=== PATIENT | female | born 1995 | race Two or more races ===

== ENCOUNTER 2024-04-27 08:52 | Observation (INO) | payer BC ==
[2024-04-27 10:20] LABS: Alanine Aminotransferase 10 U/L (7-40); Albumin 3.7 g/dL (3.2-4.8); Alkaline Phosphatase 87 U/L (46-116); Anion Gap 8 (5-15); BUN/Creatinine Ratio 9.2 (10.0-20.0); Calcium 9.7 mg/dL (8.7-10.4); Carbon Dioxide 23 mmol/L (20-31); Chloride 107 mmol/L (98-107); Potassium 3.6 mmol/L (3.5-5.1); Sodium 138 mmol/L (136-145)
[2024-04-27 10:21] LABS: Bilirubin, Total 0.3 mg/dL (0.2-1.0); Total Protein 6.6 g/dL (5.7-8.2)
[2024-04-27 10:31] LABS: Aspartate Aminotransferase 10 U/L (13-40); Blood Urea Nitrogen 7 mg/dL (9-23); Glucose 115 mg/dL (74-106)
[2024-04-27 10:48] LABS: Protein, Urine 13.6 mg/dL (1-14)
[2024-04-27 10:51] LABS: Creatinine, Urine 84.19 mg/dL (30.0-125.0); Urine Protein/Creatinine Ratio 0.16
[2024-04-27 10:53] LABS: Urine Bacteria FEW /hpf (None Seen); Urine Blood Negative /uL (Negative); Urine Clarity Clear (Clear); Urine Color Light-Yellow (Yellow); Urine Protein, UAD Negative (Negative); Urine Urobilinogen Normal (Negative); Urine WBC 1 /hpf (0 - 5); Urine pH 6.5 (5.0-9.0)
[2024-04-27 11:20] LABS: Basophils # (auto) 0 10 ^3/uL (0-0.2); Basophils % (auto) 0.2 % (0.0-2.0); Eosinophils # (auto) 0.1 10 ^3/uL (0-0.8); Eosinophils % (auto) 0.5 % (0.0-7.0); Hematocrit 37.3 % (36.0-46.0); Lymphocytes # (auto) 1.2 10 ^3/uL (0.4-5.4); Lymphocytes % (auto) 11.7 % (10.0-50.0); Mean Corpuscular Hemoglobin 28.5 pg (28.0-32.0); Mean Corpuscular Hgb Conc. 34.8 g/dL (32.0-36.0); Monocytes # (auto) 0.4 10 ^3/uL (0-1.3); Monocytes % (auto) 4.3 % (0.0-12.0); Neutrophils # (auto) 8.3 10 ^3/uL (1.6-8.6); Neutrophils % (auto) 83.3 % (37.0-80.0); Nucleated Red Blood Cells % 0.1 %; Platelet Count (auto) 202 10^3/uL (140-450); Red Blood Cells 4.55 10^6/uL (4.0-5.20); Red Cell Distribution Width 13.5 % (11.8-14.3); White Blood Cell 9.9 10^3/uL (4.4-10.8)
[2024-04-27 12:02] LABS: Uric Acid 6.8 mg/dL (3.1-7.8)
--- NOTE | 2024-04-27 19:30 | DVHDS2 ---
Physician Discharge Progress N Final Diagnosis: ruled out for Preeclampsia Operations or Procedures: Operations or Procedures S: 29yo IUP@31.0wks, pt was sent down from [facility] OB office for 2+ proteinuria in UA dip. Normotensive in office. +FM, denies UCs/VB/LOF/MOORE/vision changes/RUQ pain. PNC uncomplicated with Dr. Pennington. O: VSS, normotensive NST reactive (verified by 2 RNs) Laboratory Tests Test 04/27/24 09:20 04/27/24 09:22 Range/Units Urine Color Light-yellow Yellow Urine Clarity Clear Clear Urine pH 6.5 5.0-9.0 Urine Specific [place] 1.010 1.001-1.035 Urine Protein Negative Negative Urine Ketones Negative Negative Urine Blood Negative Negative /uL Urine Nitrite Negative Negative Urine Bilirubin Negative Negative Urine Urobilinogen Normal Negative mg/dL Urine Leukocyte Esterase 1+ Negative /uL Urine RBC 1 0 - 4 /hpf Urine WBC 1 0 - 5 /hpf Urine Squamous Epithelial Cells Few <5 /hpf Urine Bacteria Few H None Seen /hpf Urine Creatinine 84.19 30.0-125.0 mg/dL Urine Protein/Creatinine Ratio 0.16 Urine Glucose Normal Normal mg/dL Urine Total Protein 13.6 1-14 mg/dL White Blood Count 9.9 4.4-10.8 10^3/uL Red Blood Count 4.55 4.0-5.20 10^6/uL Hemoglobin 13.0 12.2-16.2 g/dL Hematocrit 37.3 36.0-46.0 % Mean Corpuscular Volume 82.0 80.0-100.0 fL Mean Corpuscular Hemoglobin 28.5 28.0-32.0 pg Mean Corpuscular Hemoglobin Concent 34.8 32.0-36.0 g/dL Red Cell Distribution Width 13.5 11.8-14.3 % Platelet Count 202 140-450 10^3/uL Mean Platelet Volume 9.7 6.9-10.8 fL Neutrophils (%) (Auto) 83.3 H 37.0-80.0 % Lymphocytes (%) (Auto) 11.7 10.0-50.0 % Monocytes (%) (Auto) 4.3 0.0-12.0 % Eosinophils (%) (Auto) 0.5 0.0-7.0 % Basophils (%) (Auto) 0.2 0.0-2.0 % Neutrophils # (Auto) 8.3 1.6-8.6 10 ^3/uL Lymphocytes # (Auto) 1.2 0.4-5.4 10 ^3/uL Monocytes # (Auto) 0.4 0-1.3 10 ^3/uL Eosinophils # (Auto) 0.1 0-0.8 10 ^3/uL Basophils # (Auto) 0 0-0.2 10 ^3/uL Nucleated Red Blood Cells 0.1 % Sodium Level 138 136-145 mmol/L Potassium Level 3.6 3.5-5.1 mmol/L Chloride Level 107 98-107 mmol/L Carbon Dioxide Level 23 20-31 mmol/L Anion Gap 8 5-15 Blood Urea Nitrogen 7 L 9-23 mg/dL Creatinine 0.76 0.550-1.02 mg/dL Glomerular Filtration Rate Calc 107 >90 mL/min BUN/Creatinine Ratio 9.2 L 10.0-20.0 Serum Glucose 115 H 74-106 mg/dL Uric Acid 6.8 3.1-7.8 mg/dL Calcium Level 9.7 8.7-10.4 mg/dL Total Bilirubin 0.3 0.2-1.0 mg/dL Aspartate Amino Transferase (AST) 10 L 13-40 U/L Alanine Aminotransferase (ALT) 10 7-40 U/L Alkaline Phosphatase 87 46-116 U/L Total Protein 6.6 5.7-8.2 g/dL Albumin 3.7 3.2-4.8 g/dL A: 29yo IUP@31.0wks Ruled out for preeclampsia P: D/C home FKC/PTL/PreE precautions reviewed Condition on Discharge: Stable Disposition: Home Discharge Instructions: Diet: Regular Activity: No Restrictions, As Tolerated Medications: see med list Follow Up Care: Specialist: f/u with Dr. Pennington in office as scheduled Discharge Statement: "Patient was advised to return to the ER or call 911 if any headaches, dizziness, shortness of breath, chest pain, abdominal pain, bleeding, fevers, or worsening of medical condition. Patient was counseled about treatment plan, medications, possible side effects, patientverbalized understanding. All questions were answered to the best of my ability. This discharge took greater then 30 minutes in planning, reviewing documentation, counseling the patient, and discussing with other team members." TIFFANY GUTIÉRREZ CNM Apr 27, 2024 19:30
== END 2024-04-27 12:18 | disposition home or self-care (01) ==
LOC: UNDOADMOB 08:52 → LDRP 08:52 → UNDODISOB 10:13
PROVIDERS: ADMIT Obstetrics & Gynecology; ATTEND Obstetrics & Gynecology
DX: O12.13 Gestational proteinuria, third trimester (principal); Z3A.31 31 weeks gestation of pregnancy; Z79.899 Other long term (current) drug therapy
CPT/HCPCS: 36415; 59025; 80053; 81001; 81002; 82570; 84156; 84550; 85025; 94760; G0378

== ENCOUNTER 2024-06-20 08:56 | Observation (INO) | payer BC ==
[~2024-06-20] VITALS: Ht 165.1 cm; Wt 99.8 kg
--- NOTE | 2024-06-20 09:48 | DVH ---
Procedure: US BIOPHYSICAL PROFILE 06/20/2024 09:20 AM Indication: PIH Comparison: None Technique: Sonogram of gravid uterus utilizing grayscale and color techniques. FINDINGS: Single living intrauterine gestation. Presentation: Cephalic Placenta: Anterior heart rate: 148 bpm MARCY: 10.6 cm, DVP: 4.6 cm Maternal cervix: Not visualized Biophysical Profile: breathing score: 2 movement score: 2 tone: 2 Quantitative MARCY score: 2 Total score: 8/8 IMPRESSION: 1. Single living as above. 2. Biophysical profile score: 8/8.
[2024-06-20 10:02] LABS: Urine Bacteria FEW /hpf (None Seen); Urine Blood Negative /uL (Negative); Urine Clarity Clear (Clear); Urine Color Colorless (Yellow); Urine Protein, UAD Negative (Negative); Urine Specific Gravity 1.005 (1.001-1.035); Urine Squamous Epithelial Cell FEW /hpf (<5); Urine Urobilinogen Normal (Negative); Urine WBC 1 /HPF (0-5); Urine pH 6.5 (5.0-9.0)
[2024-06-20 10:07] LABS: Basophils # (auto) 0 10 ^3/uL (0-0.2); Basophils % (auto) 0.3 % (0.0-2.0); Eosinophils # (auto) 0.1 10 ^3/uL (0-0.8); Eosinophils % (auto) 0.6 % (0.0-7.0); Hemoglobin 14.1 g/dL (12.2-16.2); Monocytes # (auto) 0.5 10 ^3/uL (0-1.3); White Blood Cell 8.3 10^3/uL (4.4-10.8)
[2024-06-20 10:11] LABS: Mean Corpuscular Hemoglobin 26.7 pg (28.0-32.0); Mean Corpuscular Hgb Conc. 33.5 g/dL (32.0-36.0); Mean Corpuscular Volume 79.9 fL (80.0-100.0); Monocytes % (auto) 6.6 % (0.0-12.0); Neutrophils # (auto) 6.6 10 ^3/uL (1.6-8.6); Neutrophils % (auto) 80.5 % (37.0-80.0); Platelet Count (auto) 186 10^3/uL (140-450); Red Blood Cells 5.27 10^6/uL (4.0-5.20); Red Cell Distribution Width 14.3 % (11.8-14.3)
[2024-06-20 10:15] LABS: INR 0.91 (0.9-1.15); Prothrombin Time 9.7 sec (9.3-11.8)
[2024-06-20 10:32] LABS: Alanine Aminotransferase 12 U/L (7-40); Albumin 4.1 g/dL (3.2-4.8); Anion Gap 8 (5-15); Aspartate Aminotransferase 16 U/L (13-40); BUN/Creatinine Ratio 8.1 (10.0-20.0); Bilirubin, Total 0.3 mg/dL (0.2-1.0); Calcium 9.7 mg/dL (8.7-10.4); Carbon Dioxide 25 mmol/L (20-31); Chloride 104 mmol/L (98-107); Glucose 82 mg/dL (74-106); Potassium 4.1 mmol/L (3.5-5.1); Sodium 137 mmol/L (136-145); Uric Acid 7.8 mg/dL (3.1-7.8)
[2024-06-20 10:36] LABS: Alkaline Phosphatase 130 U/L (46-116); Blood Urea Nitrogen 7 mg/dL (9-23)
--- NOTE | 2024-06-20 16:14 | DVHDS2 ---
Physician Discharge Progress N Final Diagnosis: testing for preeclampsia labs Operations or Procedures: Operations or Procedures 29yo IUP@38.5wks [facility] Dr[facility] Shankar's office for elevated BP. Dr. Shankar ordered NST/BPP/PreE labs. +FM, denies UCs/LOF/VB/MOORE/vision changes/RUQ pain. VSS, normotensive NST reactive BPP wnl FKC/PTL/PreE precautions reviewed. Dr. Shankar consulted, pt sent home with 24 hour urine collection and scheduled to come back 06/22/24 morning. Urine P/C ratio machine is broken in the lab, result pending. Laboratory Tests Test 06/20/24 09:00 06/20/24 09:35 Range/Units Urine Color Colorless Yellow Urine Clarity Clear Clear Urine pH 6.5 5.0-9.0 Urine Specific [place] 1.005 1.001-1.035 Urine Protein Negative Negative Urine Ketones Negative Negative Urine Blood Negative Negative /uL Urine Nitrite Negative Negative Urine Bilirubin Negative Negative Urine Urobilinogen Normal Negative mg/dL Urine Leukocyte Esterase 1+ Negative /uL Urine RBC None seen 0 - 4 /hpf Urine Microscopic WBC 1 0-5 /HPF Urine Squamous Epithelial Cells Few <5 /hpf Urine Bacteria Few H None Seen /hpf Urine Creatinine Pending Urine Protein/Creatinine Ratio Pending Urine Glucose Normal Normal mg/dL Urine Total Protein Pending White Blood Count 8.3 4.4-10.8 10^3/uL Red Blood Count 5.27 H 4.0-5.20 10^6/uL Hemoglobin 14.1 12.2-16.2 g/dL Hematocrit 42.0 36.0-46.0 % Mean Corpuscular Volume 79.9 L 80.0-100.0 fL Mean Corpuscular Hemoglobin 26.7 L 28.0-32.0 pg Mean Corpuscular Hemoglobin Concent 33.5 32.0-36.0 g/dL Red Cell Distribution Width 14.3 11.8-14.3 % Platelet Count 186 140-450 10^3/uL Mean Platelet Volume 9.5 6.9-10.8 fL Neutrophils (%) (Auto) 80.5 H 37.0-80.0 % Lymphocytes (%) (Auto) 12.0 10.0-50.0 % Monocytes (%) (Auto) 6.6 0.0-12.0 % Eosinophils (%) (Auto) 0.6 0.0-7.0 % Basophils (%) (Auto) 0.3 0.0-2.0 % Neutrophils # (Auto) 6.6 1.6-8.6 10 ^3/uL Lymphocytes # (Auto) 1.0 0.4-5.4 10 ^3/uL Monocytes # (Auto) 0.5 0-1.3 10 ^3/uL Eosinophils # (Auto) 0.1 0-0.8 10 ^3/uL Basophils # (Auto) 0 0-0.2 10 ^3/uL Nucleated Red Blood Cells 0.0 % Prothrombin Time 9.7 9.3-11.8 sec Prothrombin Time INR 0.91 0.9-1.15 Activated Partial Thromboplast Time 32.0 24.5-34.5 SEC Sodium Level 137 136-145 mmol/L Potassium Level 4.1 3.5-5.1 mmol/L Chloride Level 104 98-107 mmol/L Carbon Dioxide Level 25 20-31 mmol/L Anion Gap 8 5-15 Blood Urea Nitrogen 7 L 9-23 mg/dL Creatinine 0.86 0.550-1.02 mg/dL Glomerular Filtration Rate Calc 93 >90 mL/min BUN/Creatinine Ratio 8.1 L 10.0-20.0 Serum Glucose 82 74-106 mg/dL Uric Acid 7.8 3.1-7.8 mg/dL Calcium Level 9.7 8.7-10.4 mg/dL Total Bilirubin 0.3 0.2-1.0 mg/dL Aspartate Amino Transferase (AST) 16 13-40 U/L Alanine Aminotransferase (ALT) 12 7-40 U/L Alkaline Phosphatase 130 H 46-116 U/L Total Protein 7.0 5.7-8.2 g/dL Albumin 4.1 3.2-4.8 g/dL Condition on Discharge: Stable Disposition: Home Discharge Instructions: Diet: Regular Activity: No Restrictions, As Tolerated Follow Up/Referral: Please return on 06/22/24 @1200 Medications: see med list Follow Up Care: Specialist: f/u on 06/22/24 with 24 hr urine collection Discharge Statement: "Patient was advised to return to the ER or call 911 if any headaches, dizziness, shortness of breath, chest pain, abdominal pain, bleeding, fevers, or worsening of medical condition. Patient was counseled about treatment plan, medications, possible side effects, patientverbalized understanding. All questions were answered to the best of my ability. This discharge took greater then 30 minutes in planning, reviewing documentation, counseling the patient, and discussing with other team members." Visit Coding OBGYN Date of Service: Jun 20, 2024 Billing Provider: TIFFANY GUTIÉRREZ CNM RN RADIOLOGY Common Visit Codes: 50085-[id number] OBS CARE (HIGH) RN RADIOLOGY Procedure Codes: 98359-81- NON-STRESS TEST TIFFANY GUTIÉRREZ CNM Jun 20, 2024 16:14
[2024-06-20 16:16] LABS: Protein, Urine < 6.0 mg/dL (1-14)
[2024-06-20 16:18] LABS: Creatinine, Urine 44.76 mg/dL (30.0-125.0); Urine Protein/Creatinine Ratio 0.13
== END 2024-06-20 12:00 | disposition home or self-care (01) ==
LOC: UNDOADMOB 08:56 → LDRP 08:56 → UNDODISOB 12:00
PROVIDERS: ADMIT Obstetrics & Gynecology; ATTEND Obstetrics & Gynecology
DX: O14.93 Unspecified pre-eclampsia, third trimester (principal); Z98.890 Other specified postprocedural states; Z79.899 Other long term (current) drug therapy; Z3A.38 38 weeks gestation of pregnancy
CPT/HCPCS: 36415; 76818; 80053; 81001; 82570; 84156; 84550; 85025; 85610; 85730; G0378; 59025; 81002; 94762

== ENCOUNTER 2024-06-22 11:48 | Observation (INO) | payer BC ==
[2024-06-22] MEDS ORDERED: PREN-96 PO (12:24)
[2024-06-22 13:04] LABS: Urine Bacteria FEW /hpf (None Seen); Urine Blood Negative /uL (Negative); Urine Clarity Clear (Clear); Urine Color Light-Yellow (Yellow); Urine Protein, UAD Negative (Negative); Urine Specific Gravity 1.009 (1.001-1.035); Urine Squamous Epithelial Cell FEW /hpf (<5); Urine Urobilinogen Normal (Negative); Urine WBC < 1 /HPF (0-5)
[2024-06-22 13:19] LABS: Creatinine, Urine 69.44 mg/dL (30.0-125.0); Urine Protein/Creatinine Ratio 0.09
[2024-06-22 13:20] LABS: Protein, Urine < 6.0 mg/dL (1-14)
[2024-06-22 13:21] LABS: Protein, Urine < 6.0 mg/dL (1-14)
[2024-06-22 13:30] LABS: Urine Total Volume, 24 Hours 2000 mL
--- NOTE | 2024-06-22 14:10 | DVH ---
BIOPHYSICAL PROFILE HISTORY: PIH Comparison Study: none TECHNIQUE: Multiple real-time grayscale sonographic images through the gravid uterus of the fetus wi th duplex Doppler color flow and M-mode spectral analysis FINDINGS: BIOPHYSICAL PROFILE: breathing score: 2 movement score: 2 tone score: 2 Quantitative MARCY score: 2 (MARCY: 9.5 Cm.) Total score: 8 The cervix is not visualied Single live fetus in cephalic presentation. heart rate 138 beats per minute. Anterior placenta without previa or abruption IMPRESSION: Biophysical profile score: 8
--- NOTE | 2024-06-22 15:48 | DVHDS2 ---
Physician Discharge Progress N Final Diagnosis: 39wks [facility] Operations or Procedures: Operations or Procedures nst 39wks,sono Condition on Discharge: Good Disposition: Home Discharge Instructions: Diet: Regular Activity: No Restrictions, As Tolerated Medications: na Follow Up Care: Specialist: 4d Discharge Statement: "Patient was advised to return to the ER or call 911 if any headaches, dizziness, shortness of breath, chest pain, abdominal pain, bleeding, fevers, or worsening of medical condition. Patient was counseled about treatment plan, medications, possible side effects, patientverbalized understanding. All questions were answered to the best of my ability. This discharge took greater then 30 minutes in planning, reviewing documentation, counseling the patient, and discussing with other team members." Visit Coding OBGYN Date of Service: Jun 22, 2024 Billing Provider: RHONDA PINEDA DO MOTORIZED SQUAD COMMANDING OFFICER Common Visit Codes: 39165-YYM/OBS DISCH DAY >30MIN MOTORIZED SQUAD COMMANDING OFFICER Procedure Codes: 81447-89- NON-STRESS TEST RHONDA PINEDA DO Jun 22, 2024 15:48
== END 2024-06-22 14:27 | disposition home or self-care (01) ==
LOC: LDRP 11:48
PROVIDERS: ADMIT Obstetrics & Gynecology; ATTEND Obstetrics & Gynecology
DX: O13.3 Gestational [pregnancy-induced] hypertension without significant proteinuria, third trimester (principal); Z98.890 Other specified postprocedural states; Z79.899 Other long term (current) drug therapy; Z3A.39 39 weeks gestation of pregnancy
CPT/HCPCS: 59025; 76818; 81001; 81002; 82570; 84156; 94760; G0378

== ENCOUNTER 2024-06-23 04:46 | Inpatient (IN) | payer BC ==
[~2024-06-23] VITALS: Ht 165.1 cm; Wt 109.8 kg
[~2024-06-23 04:46] MED LIST: PREN-96 PO
--- NOTE | 2024-06-23 08:14 | DVHHP2 ---
OB CC & HPI Date Date of Admission: Jun 23, 2024 Patient Identification: : 1 Para: 0 EDC: Jun 29, 2024 EGA: 39WKS Chief Complaints: Reason for admission: active labor Admission Nurse Assessment Rev: No History of Present Complaints PT IS ADMITTED FOR ACTIVE LABOR,NO ROM OR VAG BLEEDING Past Medical History Cardiac: No pertinent Hx Pulmonary: No pertinent Hx Central Nervous System: No pertinent Hx GI: No pertinent Hx Hemotology/Oncology: No pertinent Hx Hepatobiliary: No pertinent Hx Psychiatric: No pertinent Hx Musculoskeletal: No pertinent Hx Rheumotologic: No pertinent Hx Infectious Disease: No peritnent Hx ENT: No pertinent Hx Renal/: No pertinent Hx Endocrine: No pertinent Hx Dermatology: No pertinent Hx Past Surgical History: No pertinent Hx OB History OB History Care: Good Care Ultrasounds: Normal mid trimester US Obstetrical Complications: None Medical Complications: None Allergies: Coded Allergies: NO KNOWN ALLERGIES (Unverified , 06/23/24) Home Meds Reported Medications Vit W/ Ferrous Fumara ( One Daily) Daily Tab, 1 TAB PO DAILY, #30 TAB 11 Refills 06/22/24 Family & Social History Family/Social History Blood Type: Unknown Rubella: unknown RPR/VDRL: Negative GBS Status: Unknown HBsAG: Negative Review of Systems Constitutional: No symptom reported Ears, Nose, & Throat: No symptom reported Eyes: No symptom reported Pulmonary/Respiratory: No symptom reported Cardiovascular: No symptom reported Gastrointestinal: No symptom reported Genitourinary: No symptom reported Musculoskeletal: No symptom reported Skin: No symptom reported Psychiatric: No symptom reported Endocrine: No symptom reported Hemotologic/Lymphatic: No symptom reported OB Admission Exam Physical Exam HEENT: TMs Normal, Fontanelles Normal, Nasal Mucosa Normal, Eyes non-injected, Oropharynx Normal, PERRLA, Moist Membranes, EOMI Heart: Rhythm Normal Lungs: Clear Abdomen: Non tender Extremities: Normal Reflexes: Normal Cervical Dilatation: 5cm Effacement: 75% Station: -1 Membranes: Intact Heart Rate: 130's Decelerations: No Decelerations Short Term Variability: Present Nursing Home Variability: Average (6-25) Contractions on Admission: < 5 Minutes Apart Intensity: Moderate OB Plan Plan Admitting Diagnosis: IUP AT 39 WKS IN ACTIVE LABOR MORBID OBESITY Plan: Expectant Management Induction Methd: Pitocin protocol Other Plan: INFORMED CONSENT OBTAINED Visit Coding OBGYN Date of Service: Jun 23, 2024 Billing Provider: RHONDA PINEDA DO [employer] Common Visit Codes: 12962-VLV/OBS SAME DATE (HIGH) [employer] Procedure Codes: 46158-21- NON-STRESS TEST RHONDA PINEDA DO Jun 23, 2024 08:14
[2024-06-23] MEDS ORDERED: LACTATED RINGER'S 1,000 ML IV SCH (09:00)
[2024-06-23 09:02] LABS: Urine Bacteria None Seen /hpf (None Seen)
[2024-06-23 09:21] LABS: Urine Blood 3+ /uL (Negative); Urine Clarity Clear (Clear); Urine Color Light-Yellow (Yellow); Urine Protein, UAD Negative (Negative); Urine Specific Gravity 1.014 (1.001-1.035); Urine Squamous Epithelial Cell FEW /hpf (<5); Urine Urobilinogen Normal (Negative); Urine WBC 2 /HPF (0-5)
[2024-06-23 09:23] LABS: Protein, Urine 14.1 mg/dL (1-14)
[2024-06-23 09:25] LABS: Amphetamine Screen, Urine Neg (NEGATIVE); Barbiturate Scree,Urine Neg (NEGATIVE); Benzodiazephine Screen, Urine Neg (NEGATIVE); Cocaine Screen, Urine Neg (NEGATIVE); Opiate Scree,Urine Neg (NEGATIVE)
[2024-06-23 09:26] LABS: Creatinine, Urine 93.77 mg/dL (30.0-125.0); Urine Protein/Creatinine Ratio 0.15
[2024-06-23 09:27] LABS: Cannabinoid Screen, Urine Neg (NEGATIVE); Phencyclidine Screen, Urine Neg (NEGATIVE)
[2024-06-23 09:41] LABS: Basophils # (auto) 0 10 ^3/uL (0-0.2); Eosinophils # (auto) 0 10 ^3/uL (0-0.8); Monocytes # (auto) 0.4 10 ^3/uL (0-1.3)
[2024-06-23 09:45] LABS: Basophils % (auto) 0.3 % (0.0-2.0); Eosinophils % (auto) 0.3 % (0.0-7.0); Hematocrit 39.7 % (36.0-46.0); Hemoglobin 13.7 g/dL (12.2-16.2); Lymphocytes # (auto) 1.4 10 ^3/uL (0.4-5.4); Mean Corpuscular Hgb Conc. 34.5 g/dL (32.0-36.0); Mean Corpuscular Volume 78.2 fL (80.0-100.0); Monocytes % (auto) 3.7 % (0.0-12.0); Neutrophils % (auto) 82.7 % (37.0-80.0); Platelet Count (auto) 202 10^3/uL (140-450); Red Blood Cells 5.08 10^6/uL (4.0-5.20); Red Cell Distribution Width 14.1 % (11.8-14.3); White Blood Cell 10.8 10^3/uL (4.4-10.8)
[2024-06-23 10:00] LABS: INR 0.9 (0.9-1.15); Partial Thromboplastin Time 25.8 SEC (24.5-34.5); Prothrombin Time 9.6 sec (9.3-11.8)
[2024-06-23 10:05] LABS: Alanine Aminotransferase 15 U/L (7-40); Albumin 3.9 g/dL (3.2-4.8); Anion Gap 10 (5-15); Aspartate Aminotransferase 18 U/L (13-40); BUN/Creatinine Ratio 10.5 (10.0-20.0); Blood Urea Nitrogen 9 mg/dL (9-23); Calcium 9.4 mg/dL (8.7-10.4); Carbon Dioxide 21 mmol/L (20-31); Glucose 79 mg/dL (74-106); Sodium 138 mmol/L (136-145); Total Protein 6.9 g/dL (5.7-8.2)
[2024-06-23 10:10] LABS: Alkaline Phosphatase 136 U/L (46-116); Bilirubin, Total 0.3 mg/dL (0.2-1.0); Chloride 107 mmol/L (98-107)
--- NOTE | 2024-06-23 10:10 | DVHPN2 ---
Chief Complaints Patient reports: No new complaints Nursing reports: No new complaints Objective Medications Current Medications Medications (Trade) Dose Ordered Sig/Philip Route PRN Reason Start Time Stop Time Status Last Admin Benzocaine (Dermoplast) 1 applic PRN PRN TOP PERINEAL AREA DISCOMFORT 06/23/24 09:00 Lactated Ringer's 1,000 ml @ 125 mls/hr Q8H IV 06/23/24 09:00 Penicillin G Potassium [id number] units/Dextrose 50 ml @ 100 mls/hr Q4H IV 06/23/24 13:00 Sodium Lauryl Sulfate (Phisoderm) 240 ml PRN PRN TOP PERINEAL AREA DISCOMFORT 06/23/24 09:00 Witch Megan (Tucks) 1 pad PRN PRN TOP PERINEAL AREA DISCOMFORT 06/23/24 09:00 General: Normal Lungs: Normal Others ve-unchanged Studies Laboratory Tests 06/23/24 09:29 Test 06/23/24 09:29 Range/Units Serum Glucose Pending Ass/Plan Assessment labor Plan pt is refusing pitocin ,pt urged to take advise from provider Visit Coding OBGYN Date of Service: Jun 23, 2024 Billing Provider: RHONDA PINEDA DO FINANCIAL ENGINEER Common Visit Codes: [id number] INP/OBS CARE(MOD) FINANCIAL ENGINEER Procedure Codes: 90538-75- NON-STRESS TEST RHONDA PINEDA DO Jun 23, 2024 10:10
[2024-06-23 10:40] LABS: Uric Acid 8.8 mg/dL (3.1-7.8)
[2024-06-23] MEDS: LIDOCAINE 2%HCL (LOCAL ANESTH.) INJ 20ML MDV IJ ONE (12:30)
[2024-06-23] MEDS ORDERED: PENICILLIN G POTASSIUM 2,500,000 UNITS in D5W 5% 50 ML IV SCH (13:00)
[2024-06-23] MEDS: ePHEDrine SULFATE 50 MG/ML AMP IV ONE (13:00)
[2024-06-23] MEDS: PENICILLIN G POT 5MIL/D5 50ML 50 ML IV ONE (13:13)
[2024-06-23] MEDS ORDERED: ePHEDrine SULFATE 50 MG/ML AMP ONE (13:26)
[2024-06-23] MEDS: ROPIVACAINE HCL 200 ML ONE (13:44)
--- NOTE | 2024-06-23 15:44 | DVHPN2 ---
Chief Complaints Patient reports: No new complaints Nursing reports: No new complaints Objective Medications Current Medications Medications (Trade) Dose Ordered Sig/Philip Route PRN Reason Start Time Stop Time Status Last Admin Benzocaine (Dermoplast) 1 applic PRN PRN TOP PERINEAL AREA DISCOMFORT 06/23/24 09:00 Lactated Ringer's 1,000 ml @ 125 mls/hr Q8H IV 06/23/24 09:00 Penicillin G Potassium [id number] units/Dextrose 50 ml @ 100 mls/hr Q4H IV 06/23/24 13:00 Sodium Lauryl Sulfate (Phisoderm) 240 ml PRN PRN TOP PERINEAL AREA DISCOMFORT 06/23/24 09:00 Witch Megan (Tucks) 1 pad PRN PRN TOP PERINEAL AREA DISCOMFORT 06/23/24 09:00 General: Normal Lungs: Normal Others VE-9.5CM./- Studies Laboratory Tests 06/23/24 09:29 Test 06/23/24 09:29 Range/Units Serum Glucose 79 74-106 mg/dL Ass/Plan Assessment labor Plan REFUSES PITOCIN IUPC INSERTED AMNIO STARTED,SPOKE TO PT RE EXPEDITING DEL DUE TO VARIABLE DECL AND THAT SHE NEEDS LITTLE AUGMENTATION OF LABOR BUT PT REFUSES Visit Coding OBGYN Date of Service: Jun 23, 2024 Billing Provider: RHONDA PINEDA DO [employer]IS[employer] Common Visit Codes: [id number] INP/OBS CARE(HIGH) FOX RAISER Procedure Codes: 57121-46- NON-STRESS TEST RHONDA PINEDA DO Jun 23, 2024 15:44
[2024-06-23] MEDS ORDERED: SODIUM CHLORIDE 0.9% 1,000 ML IUPC SCH (16:00)
[2024-06-23] MEDS ORDERED: SODIUM CHLORIDE 0.9% 200 ML IUPC ONE (16:00)
[2024-06-23] MEDS: LACT. RINGERS/OXYTOCIN 20UNITS 500 ML IV ONE ×2 (17:43→20:00)
--- NOTE | 2024-06-23 18:04 | LDN2 ---
Labor and Delivery Note Date 06/23/24 Age 29 1 Para 1 EDC 2-27 EGA 39WKS Diagnosis LABOR,MORBID OBESITY Vaginal Delivery: VTX Vacuum Assisted: No Placenta: Spontaneous Sex: Female Apgars 8-9 Nuchal Cord Transected: No Amniotic Fluid: Clear Anesthesia EPIDURAL Episiotomy: Yes Extension: Yes Repaired with 2-0 CHROMIC EBL 300ML Labs Blood Bank 06/23/24 09:29: Blood Type B POSITIVE Complications NONE Conditions STABLE Comments/Significant Med [place] SPEC EXAM NO CXAL LAC,MIDLINE EPIS DONE AFTER PERMISSION OBTAINED DUE TO LOW HEART AND DECL ,PERMISSION GRANTED ,CORD PH 7.29 Visit Coding OBGYN Date of Service: Jun 23, 2024 Billing Provider: RHONDA PINEDA DO [place] Common Visit Codes: 64037-ZUK/OBS SAME DATE (HIGH) [place] Procedure Codes: 93365-HCD DEL INCLUDING RHONDA PINEDA DO Jun 23, 2024 18:04
[2024-06-23] MEDS ORDERED: ONDANSETRON ODT 4 MG TAB PO PRN (18:30)
[2024-06-23] MEDS: IBUPROFEN 600 MG TAB PO PRN (19:23)
[2024-06-23 19:30] VITALS: BP 113/62; PULSE 76; RESP 20; TEMP 98.1; O2SAT 96
[2024-06-23] MEDS: WITCH HAZEL-GLYCERIN PAD TOP PRN (20:42)
[2024-06-23] MEDS: PHISODERM TOP SOLN 240ML BTL TOP PRN (20:42)
[2024-06-23] MEDS: DERMOPLAST 60ML BOTTLE TOP PRN (20:42)
[2024-06-23] MEDS: ACETAMINOPHEN 325 MG TAB PO PRN (22:32)
[2024-06-23] MEDS: DOCUSATE SOD 100 MG CAP PO SCH (22:32)
[2024-06-23 23:01] VITALS: BP 117/59; PULSE 78; RESP 16; TEMP 98.3; O2SAT 96
[2024-06-24 03:03] VITALS: BP 110/58; PULSE 62; RESP 16; TEMP 98
[2024-06-24 07:00] VITALS: BP 122/66; PULSE 76; RESP 18; TEMP 98.1
[2024-06-24 07:07] LABS: RPR Non Reactive (Non Reactive)
--- NOTE | 2024-06-24 08:43 | DVHPN2 ---
Chief Complaints Patient reports: No new complaints, Feels better Nursing reports: No new complaints Objective Vitals Vital Signs Date Time Temp Pulse Resp B/P (MAP) Pulse Ox O2 Delivery O2 Flow Rate FiO2 06/24/24 07:00 98.1 76 18 122/66 (84) 98.1 06/23/24 23:01 96 Medications Current Medications Medications (Trade) Dose Ordered Sig/Philip Route PRN Reason Start Time Stop Time Status Last Admin Acetaminophen (Tylenol Tablet) 650 mg Q4HP PRN PO MILD PAIN (1-3 PAIN SCALE) 06/23/24 18:30 06/23/24 22:32 Benzocaine (Dermoplast) 1 applic PRN PRN TOP PERINEAL AREA DISCOMFORT 06/23/24 09:00 06/23/24 20:42 Docusate Sodium (Colace Capsule) 200 mg HS PO 06/23/24 22:00 06/23/24 22:32 Ibuprofen (Motrin Tablet) 600 mg Q6HP PRN PO MODERATE PAIN (4-6 PAIN SCALE) 06/23/24 18:30 06/24/24 05:24 Lactated Ringer's 1,000 ml @ 125 mls/hr Q8H IV 06/23/24 09:00 Cancel Ondansetron HCl (Zofran Po) 4 mg Q4HPRN PRN PO NAUSEA / VOMITING 06/23/24 18:30 Penicillin G Potassium [id number] units/Dextrose 50 ml @ 100 mls/hr Q4H IV 06/23/24 13:00 Cancel Sodium Chloride 1,000 ml @ 125 mls/hr Q8H IUPC 06/23/24 16:00 Cancel Sodium Lauryl Sulfate (Phisoderm) 240 ml PRN PRN TOP PERINEAL AREA DISCOMFORT 06/23/24 09:00 06/23/24 20:42 Witch Megan (Tucks) 1 pad PRN PRN TOP PERINEAL AREA DISCOMFORT 06/23/24 09:00 06/23/24 20:42 General: Normal Lungs: Normal Cardiovascular: Normal Abdominal: Soft Studies Laboratory Tests 06/23/24 09:29 Test 06/23/24 09:29 Range/Units Serum Glucose 79 74-106 mg/dL Ass/Plan Assessment s/p Plan supportive care Visit Coding OBGYN Date of Service: Jun 24, 2024 Billing Provider: RHONDA PINEDA DO CABIN SERVICE AGENT Common Visit Codes: [id number] INP/OBS CARE(LOW) RHONDA PINEDA DO Jun 24, 2024 08:43
[2024-06-24 10:45] VITALS: BP 115/73; PULSE 68; RESP 16; TEMP 97.9
[2024-06-24 15:00] VITALS: BP 112/62; PULSE 76; RESP 16; TEMP 97.7
[2024-06-24 19:00] VITALS: BP 132/73; PULSE 84; RESP 16; TEMP 97.7
[2024-06-24 23:00] VITALS: BP 119/67; PULSE 74; RESP 17; TEMP 97.6
[2024-06-25 03:00] VITALS: BP 122/68; PULSE 79; RESP 17; TEMP 98.4
[2024-06-25 07:00] VITALS: BP 121/62; PULSE 67; RESP 16; TEMP 97.6
--- NOTE | 2024-06-25 08:47 | DVHPN2 ---
Chief Complaints Patient reports: No new complaints, Feels better Nursing reports: No new complaints Objective Vitals Vital Signs Date Time Temp Pulse Resp B/P (MAP) Pulse Ox O2 Delivery O2 Flow Rate FiO2 06/25/24 07:00 97.6 67 16 121/62 (81) 97.6 06/23/24 23:01 96 General: Normal Lungs: Normal Cardiovascular: Normal Abdominal: Soft Studies Laboratory Tests 06/23/24 09:29 Test 06/23/24 09:29 Range/Units Serum Glucose 79 74-106 mg/dL Ass/Plan Assessment Stable improved requesting discharge home Plan See discharge summary see discharge orders. VIJAY PRINCE DO Jun 25, 2024 08:47
--- NOTE | 2024-06-25 08:52 | DVHDS2 ---
Discharge Summary Date of Admission Jun 23, 2024 at 08:00 Date of Discharge: Jun 25, 2024 Admitting Diagnosis Labor Wounds: Perineal repair Labs/Diagnostic Data: Laboratory Results Test 06/23/24 09:29 06/23/24 09:00 White Blood Count 10.8 10^3/uL (4.4-10.8) Red Blood Count 5.08 10^6/uL (4.0-5.20) Hemoglobin 13.7 g/dL (12.2-16.2) Hematocrit 39.7 % (36.0-46.0) Mean Corpuscular Volume 78.2 fL (80.0-100.0) Mean Corpuscular Hemoglobin 27.0 pg (28.0-32.0) Mean Corpuscular Hemoglobin Concent 34.5 g/dL (32.0-36.0) Red Cell Distribution Width 14.1 % (11.8-14.3) Platelet Count 202 10^3/uL (140-450) Mean Platelet Volume 9.6 fL (6.9-10.8) Neutrophils (%) (Auto) 82.7 % (37.0-80.0) Lymphocytes (%) (Auto) 13.0 % (10.0-50.0) Monocytes (%) (Auto) 3.7 % (0.0-12.0) Eosinophils (%) (Auto) 0.3 % (0.0-7.0) Basophils (%) (Auto) 0.3 % (0.0-2.0) Neutrophils # (Auto) 9.0 10 ^3/uL (1.6-8.6) Lymphocytes # (Auto) 1.4 10 ^3/uL (0.4-5.4) Monocytes # (Auto) 0.4 10 ^3/uL (0-1.3) Eosinophils # (Auto) 0 10 ^3/uL (0-0.8) Basophils # (Auto) 0 10 ^3/uL (0-0.2) Nucleated Red Blood Cells 0.0 % Prothrombin Time 9.6 sec (9.3-11.8) Prothrombin Time INR 0.90 (0.9-1.15) Activated Partial Thromboplast Time 25.8 SEC (24.5-34.5) Sodium Level 138 mmol/L (136-145) Potassium Level 4.0 mmol/L (3.5-5.1) Chloride Level 107 mmol/L (98-107) Carbon Dioxide Level 21 mmol/L (20-31) Anion Gap 10 (5-15) Blood Urea Nitrogen 9 mg/dL (9-23) Creatinine 0.86 mg/dL (0.550-1.02) Glomerular Filtration Rate Calc 93 mL/min (>90) BUN/Creatinine Ratio 10.5 (10.0-20.0) Serum Glucose 79 mg/dL (74-106) Uric Acid 8.8 mg/dL (3.1-7.8) Calcium Level 9.4 mg/dL (8.7-10.4) Total Bilirubin 0.3 mg/dL (0.2-1.0) Aspartate Amino Transferase (AST) 18 U/L (13-40) Alanine Aminotransferase (ALT) 15 U/L (7-40) Alkaline Phosphatase 136 U/L (46-116) Total Protein 6.9 g/dL (5.7-8.2) Albumin 3.9 g/dL (3.2-4.8) Rapid Plasma Reagin Non reactive (Non Reactive) Hepatitis C Antibody Negative (Negative) Urine Color Light-yellow (Yellow) Urine Clarity Clear (Clear) Urine pH 7.0 (5.0-9.0) Urine Specific [place] 1.014 (1.001-1.035) Urine Protein Negative (Negative) Urine Ketones Negative (Negative) Urine Blood 3+ /uL (Negative) Urine Nitrite Negative (Negative) Urine Bilirubin Negative (Negative) Urine Urobilinogen Normal mg/dL (Negative) Urine Leukocyte Esterase Negative /uL (Negative) Urine RBC 13 /hpf (0 - 4) Urine Microscopic WBC 2 /HPF (0-5) Urine Squamous Epithelial Cells Few /hpf (<5) Urine Bacteria None seen /hpf (None Seen) Urine Creatinine 93.77 mg/dL (30.0-125.0) Urine Protein/Creatinine Ratio 0.15 Urine Glucose Normal mg/dL (Normal) Urine Total Protein 14.1 mg/dL (1-14) Urine Opiates Screen Neg (NEGATIVE) Urine Fentanyl Screen Neg (NEGATIVE) Urine Barbiturates Screen Neg (NEGATIVE) Urine Phencyclidine Screen Neg (NEGATIVE) Urine Amphetamines Screen Neg (NEGATIVE) Urine Benzodiazepines Screen Neg (NEGATIVE) Urine Cocaine Screen Neg (NEGATIVE) Urine Cannabinoids Screen Neg (NEGATIVE) Other Laboratory Tests 06/23/24 09:29 Brief Hx & Hospital Course: Patient underwent by Dr. Casie Sanderson without complications Consults/Reason for consult None Operations or Procedures None Condition at Discharge: Good Final Diagnosis/Problems List Status post Secondary Diagnosis: None Discharge Disposition: Home Discharge Instruct/Medications Diet: Regular Activity: Pelvic rest Follow Up/Referral: Dr. Shankar 2 weeks or p.r.n. Discharge Statement: "Patient was advised to return to the ER or call 911 if any headaches, dizziness, shortness of breath, chest pain, abdominal pain, bleeding, fevers, or worsening of medical condition. Patient was counseled about treatment plan, medications, possible side effects, patientverbalized understanding. All questions were answered to the best of my ability. This discharge took greater then 30 minutes in planning, reviewing documentation, counseling the patient, and discussing with other team members." ASSESSMENT ASSESSMENT Assessment Visit Coding OBN Date of Service: Jun 25, 2024 Billing Provider: VIJAY PRINCE DO INDUSTRIAL/ORGANIZATIONAL PSYCHOLOGIST Common Visit Codes: [id number] INP/OBS CARE (HIGH) INDUSTRIAL/ORGANIZATIONAL PSYCHOLOGIST Procedure Codes: 36780-55- NON-STRESS TEST, 12711-AKH DELIVERY ONLY VIJAY PRINCE DO Jun 25, 2024 08:52
[2024-06-25 15:05] VITALS: BP 120/60; PULSE 67; RESP 16; TEMP 97.8
[2024-06-26 11:07] LABS: Treponema Pallidum Ab LC Non Reactive (Non Reactive)
== END 2024-06-25 16:55 | disposition home or self-care (01) | DRG 807 ==
LOC: LDRP 04:46 → OBSVTOIN 08:00 → LDRP 08:01
PROVIDERS: ADMIT Obstetrics & Gynecology; ATTEND Obstetrics & Gynecology
PROC: 10E0XZZ Delivery of Products of Conception, External Approach (ICD-10-PCS; principal; 2024-06-23)
PROC: 0W8NXZZ Division of Female Perineum, External Approach (ICD-10-PCS; 2024-06-23)
PROC: 0HQ9XZZ Repair Perineum Skin, External Approach (ICD-10-PCS; 2024-06-23)
PROC: 3E0R3BZ Introduction of Anesthetic Agent into Spinal Canal, Percutaneous Approach (ICD-10-PCS; 2024-06-23)
PROC: 00HU33Z Insertion of Infusion Device into Spinal Canal, Percutaneous Approach (ICD-10-PCS; 2024-06-23)
DX: O99.214 Obesity complicating childbirth (principal); Z37.0 Single live birth; O70.0 First degree perineal laceration during delivery; E66.01 Morbid (severe) obesity due to excess calories; Z3A.39 39 weeks gestation of pregnancy
CPT/HCPCS: 36415; 59409; 62282; 80053; 80307; 81001; 82570; 84156; 84550; 85025; 85610; 85730; 86592; 86780; 86803; 86850; 86900; 86901; 94760; 96360; 96361; 96365; 96366; G0378; J2540; J2590; J7060